=== PATIENT | female | born 1995 | race Caucasian/White ===

== ENCOUNTER 2017-10-24 13:19 | Outpatient (CLI) | payer MEDICAID ==
[2017-10-24 16:42] LABS: ADD MAN DIFF? NO
[2017-10-24 16:44] LABS: WHITE BLOOD COUNT 8.7 10^3/ul (4.8-10.8)
[2017-10-24 16:44] LABS: BASOPHILS % 0.2 % (0.0-2.0); EOSINOPHILS # 0.1 10^3/ul (0.0-0.5); HEMATOCRIT 34.1 % (37.0-47.0); HEMOGLOBIN 11.5 g/dl (12.0-16.0); LYMPHOCYTES # 1.5 10^3/ul (0.8-2.9); LYMPHOCYTES % 17.8 % (15.0-51.0); MEAN CORPUSCULAR HGB CONC 33.7 g/dl (32.0-37.0); MEAN PLATELET VOLUME 9.9 fl (7.4-10.4); MONOCYTE # 0.6 10^3/ul (0.3-0.9); MONOCYTES % 6.7 % (0.0-11.0); NEUTROPHIL # 6.4 10^3/ul (1.6-7.5); NEUTROPHILS % 73.6 % (39.0-77.0); PLATELET COUNT 261 10^3/UL (140-415); RED BLOOD COUNT 3.83 10^6/ul (4.20-5.40); RED CELL DISTRIBUTION WIDTH 12.7 % (11.5-14.5)
[2017-10-24 17:02] LABS: ALANINE AMINOTRANSFERASE 147 IU/L (13-69); ALBUMIN 3.1 g/dl (3.3-4.9); ALBUMIN/GLOBULIN RATIO 0.86; ALKALINE PHOSPHATASE 222 IU/L (42-121); ANION GAP 14 (8-16); ASPARTATE AMINO TRANSFERASE 57 IU/L (15-46); BILIRUBIN,INDIRECT 0.3 mg/dl (0-1.1); BILIRUBIN,TOTAL 0.3 mg/dl (0.2-1.3); BLOOD UREA NITROGEN 7 mg/dl (7-20); CALCIUM 8.5 mg/dl (8.4-10.2); CARBON DIOXIDE 20 mmol/L (21-31); CHLORIDE 110 mmol/L (97-110); GLUCOSE 76 mg/dl (70-220); POTASSIUM 4.2 mmol/L (3.5-5.1); SODIUM 140 mmol/L (135-144); TOTAL PROTEIN 6.7 g/dl (6.1-8.1)
[2017-10-24] MEDS: BETAMET NA PHOS/AC(6 MG/ML) 5ML INJ IM (18:01)
[2017-11-04 12:47] LABS: CHENODEOXYCHOLIC ACID 14.1 umol/L (< OR = 3.1); CHOLIC ACID 33.1 umol/L (< OR = 1.8); DEOXYCHOLIC ACID 9.1 umol/L (< OR = 2.4); TOTAL BILE ACIDS 56.3 umol/L (< OR = 6.8)
== END 2017-10-24 18:19 | disposition home or self-care (01) ==
LOC: OBT 13:19 → L-D 13:19 → OBT 18:19
DX: O26.893 Other specified pregnancy related conditions, third trimester (principal); Z3A.33 33 weeks gestation of pregnancy
CPT/HCPCS: 76818; 80053; 83789; 85025; 96372

== ENCOUNTER 2017-10-25 17:48 | Outpatient (CLI) | payer MEDICAID ==
[2017-10-25] MEDS: BETAMET NA PHOS/AC(6 MG/ML) 5ML INJ IM (18:00)
== END 2017-10-25 19:23 | disposition home or self-care (01) ==
LOC: OBT 17:48 → L-D 17:49 → OBT 19:23
DX: O36.8930 Maternal care for other specified fetal problems, third trimester, not applicable or unspecified (principal); Z3A.34 34 weeks gestation of pregnancy
CPT/HCPCS: 76818

== ENCOUNTER 2017-10-27 16:37 | Outpatient (CLI) | payer MEDICAID | END 2017-10-27 21:11 | disposition home or self-care (01) | LOC: OBT 16:37 → L-D 16:41 → OBT 21:11 | DX: O36.8330 Maternal care for abnormalities of the fetal heart rate or rhythm, third trimester, not applicable or unspecified (principal); Z3A.34 34 weeks gestation of pregnancy | CPT/HCPCS: 76818 ==

== ENCOUNTER 2017-10-30 18:56 | Outpatient (CLI) | payer MEDICAID ==
[2017-10-30 21:22] LABS: RUPTURE FETAL MEMBRANES NEGATIVE (NEGATIVE)
== END 2017-10-30 21:52 | disposition home or self-care (01) ==
LOC: OBT 18:56 → L-D 18:57 → OBT 21:52
DX: O26.613 Liver and biliary tract disorders in pregnancy, third trimester (principal); K83.1 Obstruction of bile duct; Z3A.34 34 weeks gestation of pregnancy
CPT/HCPCS: 76818; 84112

== ENCOUNTER 2017-11-01 11:16 | Outpatient (CLI) | payer MEDICAID ==
[2017-11-01 13:49] LABS: ALANINE AMINOTRANSFERASE 61 IU/L (13-69); ALBUMIN 3.4 g/dl (3.3-4.9); ALBUMIN/GLOBULIN RATIO 1.03; ALKALINE PHOSPHATASE 187 IU/L (42-121); ANION GAP 9 (8-16); ASPARTATE AMINO TRANSFERASE 22 IU/L (15-46); BLOOD UREA NITROGEN 11 mg/dl (7-20); CALCIUM 9.5 mg/dl (8.4-10.2); CARBON DIOXIDE 22 mmol/L (21-31); CHLORIDE 110 mmol/L (97-110); CREATININE 0.57 mg/dl (0.44-1.00); GLUCOSE 83 mg/dl (70-220); POTASSIUM 4.3 mmol/L (3.5-5.1); SODIUM 137 mmol/L (135-144); TOTAL PROTEIN 6.7 g/dl (6.1-8.1)
[2017-11-01] MEDS: LACTATED RINGER'S 1,000 ML IV ×3 (15:11→17:14)
[2017-11-01] MEDS: TERBUTALINE 1 MG/ML INJ SC ×2 (15:11→18:08)
[2017-11-01 17:27] LABS: URINE BLOOD (Dip) POC Negative (NEGATIVE); URINE GLUCOSE (Dip) POC Negative (NEGATIVE); URINE KETONES (Dip) POC Negative (NEGATIVE); URINE LEUKOCYTE EST (Dip) POC 2+ (NEGATIVE); URINE NITRITE (Dip) POC Negative (NEGATIVE); URINE TOTAL PROTEIN POC Negative (NEGATIVE)
[2017-11-01 18:01] LABS: ADD UMIC YES; UR ASCORBIC ACID NEGATIVE (NEGATIVE); UR BACTERIA FEW /HPF (NONE SEEN); UR BILIRUBIN (Dip) NEGATIVE (NEGATIVE); UR BLOOD (Dip) NEGATIVE (NEGATIVE); UR CALCIUM OXALATE CRYSTAL FEW /HPF (NONE SEEN); UR CLARITY CLOUDY (CLEAR); UR COLOR YELLOW (YELLOW); UR GLUCOSE (Dip) NEGATIVE (NEGATIVE); UR KETONES (Dip) NEGATIVE (NEGATIVE); UR LEUKOCYTE ESTERASE (Dip) 3+ Leu/ul (NEGATIVE); UR NITRITE (Dip) NEGATIVE (NEGATIVE); UR RBC 8 /HPF (0-5); UR SPECIFIC GRAVITY (Dip) 1.018 (1.003-1.030); UR SQUAMOUS EPITHELIAL CELL MODERATE /HPF (FEW); UR TOTAL PROTEIN (Dip) NEGATIVE (NEGATIVE); UR UROBILINOGEN (Dip) NEGATIVE (NEGATIVE); UR WBC 74 /HPF (0-5)
[2017-11-01] MEDS: NIFEdipine 10 MG CAP PO (20:02)
== END 2017-11-01 21:51 | disposition home or self-care (01) ==
LOC: OBT 11:16 → L-D 11:16 → OBT 21:51
DX: O62.9 Abnormality of forces of labor, unspecified (principal); O26.613 Liver and biliary tract disorders in pregnancy, third trimester; K83.1 Obstruction of bile duct; Z3A.35 35 weeks gestation of pregnancy
CPT/HCPCS: 36415; 76818; 80053; 81001; 81003; 87086; 96360; 96361; 96372

== ENCOUNTER 2017-11-04 10:48 | Outpatient (CLI) | payer MEDICAID ==
[2017-11-04 15:07] LABS: ADD MAN DIFF? NO
[2017-11-04 15:14] LABS: WHITE BLOOD COUNT 7.7 10^3/ul (4.8-10.8)
[2017-11-04 15:14] LABS: BASOPHILS % 0.4 % (0.0-2.0); EOSINOPHILS # 0.1 10^3/ul (0.0-0.5); HEMATOCRIT 34.7 % (37.0-47.0); HEMOGLOBIN 11.3 g/dl (12.0-16.0); LYMPHOCYTES # 1.6 10^3/ul (0.8-2.9); LYMPHOCYTES % 21.3 % (15.0-51.0); MEAN CORPUSCULAR HEMOGLOBIN 29.7 pg (29.0-33.0); MEAN CORPUSCULAR HGB CONC 32.6 g/dl (32.0-37.0); MEAN CORPUSCULAR VOLUME 91.1 fl (82.0-101.0); MEAN PLATELET VOLUME 10.5 fl (7.4-10.4); MONOCYTE # 0.6 10^3/ul (0.3-0.9); MONOCYTES % 8.3 % (0.0-11.0); NEUTROPHIL # 5.3 10^3/ul (1.6-7.5); NEUTROPHILS % 68.4 % (39.0-77.0); PLATELET COUNT 250 10^3/UL (140-415); RED BLOOD COUNT 3.81 10^6/ul (4.20-5.40); RED CELL DISTRIBUTION WIDTH 12.7 % (11.5-14.5)
[2017-11-04 15:32] LABS: ALANINE AMINOTRANSFERASE 53 IU/L (13-69); ALBUMIN 3.4 g/dl (3.3-4.9); ALKALINE PHOSPHATASE 185 IU/L (42-121); ASPARTATE AMINO TRANSFERASE 23 IU/L (15-46); BILIRUBIN,INDIRECT 0.1 mg/dl (0-1.1); BILIRUBIN,TOTAL 0.1 mg/dl (0.2-1.3); TOTAL PROTEIN 6.8 g/dl (6.1-8.1)
[2017-11-04 15:47] LABS: RUPTURE FETAL MEMBRANES NEGATIVE (NEGATIVE)
[2017-11-10 16:31] LABS: CHENODEOXYCHOLIC ACID 4.9 umol/L (< OR = 3.1); CHOLIC ACID 5.6 umol/L (< OR = 1.8); TOTAL BILE ACIDS 11.4 umol/L (< OR = 6.8)
== END 2017-11-04 17:40 | disposition home or self-care (01) ==
LOC: OBT 10:48 → L-D 10:48 → OBT 17:40
DX: O26.613 Liver and biliary tract disorders in pregnancy, third trimester (principal); Z3A.35 35 weeks gestation of pregnancy
CPT/HCPCS: 76818; 80076; 83789; 84112; 85025

== ENCOUNTER 2017-11-16 08:19 | Inpatient (IN) | payer MEDICAID ==
[2017-11-16] MEDS: LACTATED RINGER'S 1,000 ML IV* ×3 (09:24→20:21)
[2017-11-16 09:29] LABS: ADD MAN DIFF? NO
[2017-11-16] MEDS ORDERED: MISOPROSTOL 200 MCG TAB PR (09:30)
[2017-11-16] MEDS ORDERED: METHYLERGONOVINE 0.2 MG INJ IM (09:30)
[2017-11-16] MEDS ORDERED: IBUPROFEN 600 MG TAB PO (09:30)
[2017-11-16] MEDS ORDERED: OXYCODONE/ASPIRIN (4.88/325) TAB PO (09:30)
[2017-11-16] MEDS ORDERED: CARBOPROST 250 MCG INJ IM (09:30)
[2017-11-16] MEDS ORDERED: OXYTOCIN 30 UNITS/LR 500 ML IV (09:30)
[2017-11-16] MEDS ORDERED: BUTORPHANOL 2 MG INJ IV (09:30)
[2017-11-16] MEDS ORDERED: NA PHOSPHATE/BIPHOS 133 ML ENEMA PR (09:30)
[2017-11-16 09:35] LABS: WHITE BLOOD COUNT 8.9 10^3/ul (4.8-10.8)
[2017-11-16 09:35] LABS: BASOPHILS % 0.2 % (0.0-2.0); EOSINOPHILS # 0.1 10^3/ul (0.0-0.5); EOSINOPHILS % 1.2 % (0.0-7.0); HEMATOCRIT 34.6 % (37.0-47.0); HEMOGLOBIN 11.7 g/dl (12.0-16.0); LYMPHOCYTES # 1.8 10^3/ul (0.8-2.9); LYMPHOCYTES % 20.6 % (15.0-51.0); MEAN CORPUSCULAR HEMOGLOBIN 30.1 pg (29.0-33.0); MEAN CORPUSCULAR HGB CONC 33.8 g/dl (32.0-37.0); MEAN CORPUSCULAR VOLUME 88.9 fl (82.0-101.0); MEAN PLATELET VOLUME 10.6 fl (7.4-10.4); MONOCYTE # 0.6 10^3/ul (0.3-0.9); MONOCYTES % 7.1 % (0.0-11.0); NEUTROPHIL # 6.2 10^3/ul (1.6-7.5); NEUTROPHILS % 70.4 % (39.0-77.0); PLATELET COUNT 234 10^3/UL (140-415); RED BLOOD COUNT 3.89 10^6/ul (4.20-5.40); RED CELL DISTRIBUTION WIDTH 12.8 % (11.5-14.5)
[2017-11-16 10:04] LABS: ADD UMIC YES; UR ASCORBIC ACID NEGATIVE (NEGATIVE); UR BACTERIA FEW /HPF (NONE SEEN); UR BILIRUBIN (Dip) NEGATIVE (NEGATIVE); UR BLOOD (Dip) NEGATIVE (NEGATIVE); UR CLARITY CLEAR (CLEAR); UR COLOR YELLOW (YELLOW); UR GLUCOSE (Dip) NEGATIVE (NEGATIVE); UR KETONES (Dip) NEGATIVE (NEGATIVE); UR LEUKOCYTE ESTERASE (Dip) 2+ Leu/ul (NEGATIVE); UR NITRITE (Dip) NEGATIVE (NEGATIVE); UR RBC 1 /HPF (0-5); UR SPECIFIC GRAVITY (Dip) 1.014 (1.003-1.030); UR SQUAMOUS EPITHELIAL CELL FEW /HPF (FEW); UR TOTAL PROTEIN (Dip) NEGATIVE (NEGATIVE); UR UROBILINOGEN (Dip) NEGATIVE (NEGATIVE); UR WBC 11 /HPF (0-5)
[2017-11-16 10:58] LABS: INR 0.85; PROTIME 11.7 Sec (11.9-14.9); PT RATIO 0.9
[2017-11-16] MEDS: OXYTOCIN 30 UNITS/LR 500 ML IV ×3 (12:28→21:59)
[2017-11-16] MEDS: URSODIOL 300 MG CAP PO ×2 (13:56→21:26)
[2017-11-16] MEDS: COLESEVELAM 625 MG TAB PO ×2 (13:57→18:02)
[2017-11-16 14:09] LABS: HEPATITIS B SURFACE ANTIGEN NEGATIVE (NEGATIVE)
[2017-11-16] MEDS ORDERED: FENTAnyl 2MCG/ML-ROPIV 0.2% 100 ML (21:10)
[2017-11-16] MEDS ORDERED: ZOLPIDEM 5 MG TAB PO (21:30)
[2017-11-16] MEDS ORDERED: HYDROmorphONE 0.5 MG/0.5 ML SYG IV ×2 (21:30)
[2017-11-16] MEDS ORDERED: DIPHENHYDRAMINE 50 MG INJ IV (21:30)
[2017-11-16] MEDS ORDERED: NALOXONE (0.4 MG/ML) INJ IV (21:30)
[2017-11-16] MEDS ORDERED: ONDANSETRON 4 MG INJ IV (21:30)
[2017-11-16] MEDS ORDERED: KETOROLAC 30 MG INJ IV (21:30)
[2017-11-16] MEDS ORDERED: FENTAnyl 2MCG/ML-ROPIV 0.2% 100 ML BAG EPI (21:30)
[2017-11-16] MEDS: MINERAL OIL LIGHT 10 ML VIAL TOP (21:51)
[2017-11-16] MEDS: LIDOCAINE 1% (MPF) 30 ML INJ INJ (21:51)
[2017-11-16 22:05] LABS: RAPID PLASMA REAGIN NONREACTIVE (NR)
[2017-11-17] MEDS ORDERED: LACTATED RINGER'S 1,000 ML IV* (00:02)
[2017-11-17] MEDS ORDERED: CARBOPROST 250 MCG INJ IM (00:30)
[2017-11-17] MEDS ORDERED: DIBUCAINE 1% 30 GM OINT PR (00:30)
[2017-11-17] MEDS ORDERED: MISOPROSTOL 200 MCG TAB PR (00:30)
[2017-11-17] MEDS ORDERED: OXYTOCIN 30 UNITS/LR 500 ML IV (00:30)
[2017-11-17] MEDS ORDERED: HYDROCODONE/APAP (5/325) TAB PO (00:30)
[2017-11-17] MEDS ORDERED: ZOLPIDEM 5 MG TAB PO (00:30)
[2017-11-17] MEDS ORDERED: METHYLERGONOVINE 0.2 MG INJ IM (00:30)
[2017-11-17] MEDS: BENZOCAINE 20% 56 ML SPRAY TOP (01:06)
[2017-11-17] MEDS: IBUPROFEN 600 MG TAB PO ×5 (01:06→23:55)
[2017-11-17] MEDS: CEPHALEXIN 500 MG CAP PO ×5 (01:06→23:54)
[2017-11-17] MEDS: LANOLIN 7 GM TUBE TOP (01:07)
[2017-11-17] MEDS: WITCH HAZEL/GLYCERIN PAD PR (01:07)
[2017-11-17 08:13] LABS: ADD MAN DIFF? NO
[2017-11-17 08:19] LABS: BASOPHILS % 0.2 % (0.0-2.0); EOSINOPHILS # 0.1 10^3/ul (0.0-0.5); EOSINOPHILS % 0.6 % (0.0-7.0); HEMATOCRIT 32.2 % (37.0-47.0); HEMOGLOBIN 10.8 g/dl (12.0-16.0); LYMPHOCYTES # 2.6 10^3/ul (0.8-2.9); MEAN CORPUSCULAR HEMOGLOBIN 29.3 pg (29.0-33.0); MEAN CORPUSCULAR HGB CONC 33.5 g/dl (32.0-37.0); MEAN CORPUSCULAR VOLUME 87.5 fl (82.0-101.0); MEAN PLATELET VOLUME 10.5 fl (7.4-10.4); MONOCYTE # 0.9 10^3/ul (0.3-0.9); MONOCYTES % 5.6 % (0.0-11.0); NEUTROPHIL # 12.5 10^3/ul (1.6-7.5); NEUTROPHILS % 77.2 % (39.0-77.0); PLATELET COUNT 224 10^3/UL (140-415); RED BLOOD COUNT 3.68 10^6/ul (4.20-5.40); RED CELL DISTRIBUTION WIDTH 12.9 % (11.5-14.5)
[2017-11-17 08:19] LABS: WHITE BLOOD COUNT 16.1 10^3/ul (4.8-10.8)
[2017-11-17] MEDS: SENNA/DOCUSATE NA (8.6MG/50MG) TAB PO ×2 (08:56→21:00)
[2017-11-17] MEDS: MAGNESIUM HYDROXIDE 30ML CUP PO ×2 (08:56→21:00)
[2017-11-17] MEDS: HYDROCODONE/APAP (5/325) TAB PO (09:18)
[2017-11-18] MEDS: IBUPROFEN 600 MG TAB PO ×2 (05:37→12:13)
[2017-11-18] MEDS: CEPHALEXIN 500 MG CAP PO ×2 (05:38→12:13)
[2017-11-18 08:09] LABS: ADD MAN DIFF? NO
[2017-11-18 08:12] LABS: WHITE BLOOD COUNT 10.8 10^3/ul (4.8-10.8)
[2017-11-18 08:12] LABS: BASOPHILS % 0.2 % (0.0-2.0); EOSINOPHILS # 0.2 10^3/ul (0.0-0.5); HEMATOCRIT 31.9 % (37.0-47.0); HEMOGLOBIN 10.6 g/dl (12.0-16.0); LYMPHOCYTES # 2.9 10^3/ul (0.8-2.9); LYMPHOCYTES % 26.5 % (15.0-51.0); MEAN CORPUSCULAR HEMOGLOBIN 29.6 pg (29.0-33.0); MEAN CORPUSCULAR HGB CONC 33.2 g/dl (32.0-37.0); MEAN CORPUSCULAR VOLUME 89.1 fl (82.0-101.0); MEAN PLATELET VOLUME 10.6 fl (7.4-10.4); MONOCYTE # 0.7 10^3/ul (0.3-0.9); MONOCYTES % 6.2 % (0.0-11.0); NEUTROPHILS % 64.5 % (39.0-77.0); PLATELET COUNT 215 10^3/UL (140-415); RED BLOOD COUNT 3.58 10^6/ul (4.20-5.40); RED CELL DISTRIBUTION WIDTH 13.1 % (11.5-14.5)
[2017-11-18] MEDS: VARICELLA VACCINE LIVE/PF 1,350 UNIT/0.5 ML ML SC* (09:00)
[2017-11-18] MEDS: MAGNESIUM HYDROXIDE 30ML CUP PO (09:00)
[2017-11-18] MEDS: DIPHTH/TET/ACEL PERTUSS (ADULT) 0.5 ML VIAL IM* (09:00)
[2017-11-18] MEDS: SENNA/DOCUSATE NA (8.6MG/50MG) TAB PO (09:00)
[2017-11-18] MEDS: MEASLES,MUMPS,RUBELLA VACCINE INJ SC* (09:00)
== END 2017-11-18 18:35 | disposition home or self-care (01) | DRG 775 ==
LOC: L-D 08:19 → PP1 23:39
PROVIDERS: Obstetrics & Gynecology
PROC: 10D07Z6 Extraction of Products of Conception, Vacuum, Via Natural or Artificial Opening (ICD-10-PCS; principal; 2017-11-16 08:00)
PROC: 3E033VJ Introduction of Other Hormone into Peripheral Vein, Percutaneous Approach (ICD-10-PCS; 2017-11-16 08:00)
PROC: 0HQ9XZZ Repair Perineum Skin, External Approach (ICD-10-PCS; 2017-11-16 08:00)
DX: O26.613 Liver and biliary tract disorders in pregnancy, third trimester (principal); K83.1 Obstruction of bile duct; Z3A.37 37 weeks gestation of pregnancy; Z37.0 Single live birth; O76 Abnormality in fetal heart rate and rhythm complicating labor and delivery; O70.0 First degree perineal laceration during delivery
CPT/HCPCS: 62319; 76815; 81001; 85025; 85610; 85730; 86592; 86850; 86900; 86901; 87086; 87340; 99464